=== PATIENT | male | born 1950 | race Caucasian/White ===

== ENCOUNTER → 2023-04-02 12:56 | Outpatient (BNVA) | payer MEDICARE, SELFPAY | PROVIDERS: PCP Family Medicine; Visit Provider Neurological Surgery | DX: Z98.1 Arthrodesis status (principal) | CPT/HCPCS: 99212 ==

== ENCOUNTER 2023-06-04 08:38 | Outpatient (REF) | payer MEDICARE, SELFPAY | END 2023-06-04 08:39 | disposition home or self-care (01) | LOC: HO.MRI 08:38 | PROVIDERS: PCP Family Medicine; Visit Provider Neurological Surgery | DX: Z98.1 Arthrodesis status (principal) | CPT/HCPCS: 72148 ==